=== PATIENT | female | born 1950 | race Caucasian/White ===

== ENCOUNTER 2020-03-24 12:25 | Inpatient (IN) ==
[2020-03-24] MEDS ORDERED: 0.9 % Sodium Chloride 1,000 ML IVC ONE (12:40)
[2020-03-24 14:07] LABS: Basophils # 0.1 K/mcL (0.0-0.2); Basophils % 0.5 %; Eosinophils # 0.1 K/mcL (0.0-0.6); Eosinophils % 0.4 %; Hematocrit 27.3 % (35.3-44.9); Hemoglobin 8.5 g/dL (11.5-15.4); Immature Granulocytes % 0.8 % (0-4); Lymphocytes # 1.1 K/mcL (0.6-4.6); Lymphocytes % 7.3 %; Mean Corpuscular HGB Conc 31.1 g/dL (31.6-35.5); Mean Corpuscular Hemoglobin 29.3 pg (28.0-33.3); Mean Corpuscular Volume 94.1 fL (83.0-100.0); Mean Platelet Volume 9.4 fL (9.4-12.4); Monocytes # 0.7 K/mcL (0.0-1.3); Neutrophils # 12.8 K/mcL (1.6-8.9); Platelet Count 860 K/mcL (140-400); Red Cell Distribution Width 15.9 % (11.5-14.5); White Blood Count 14.9 K/mcL (4.3-11.1)
[2020-03-24 16:38] LABS: Albumin 3.4 g/dL (3.5-5.7); Albumin/Globulin Ratio 1.1 (1.1-2.2); Bilirubin,Total 0.4 mg/dL (0.3-1.0); Calcium 14.9 mg/dL (8.6-10.3); Globulin 3.2 g/dL (2.4-3.5); Potassium 4.4 mEq/L (3.5-5.1); Total Protein 6.6 g/dL (6.4-8.9)
[2020-03-24 16:59] LABS: Troponin I 0.03 ng/mL (< 0.04)
[2020-03-24 17:50] LABS: Bacteria,Urine Few per hpf (None-Few); Bilirubin,Urine Negative (Negative); Blood,Urine Negative (Negative); Clarity,Urine Turbid (Clear); Color,Urine Light-Yellow (Yellow); Glucose,Urine (UA) Normal (Normal); Hyaline Casts,Urine Moderate per lpf (None Seen); Ketones,Urine Negative (Negative); Leukocyte Esterase,Urine Moderate (Negative); Mucus,Urine Few per lpf (None-Few); Nitrite,Urine Negative (Negative); PH,Urine 6.5 pH Units (5.0-8.0); Protein,Urine 30 mg/dL (Neg-Trace); Renal Epithelial Cells,Urine Few per hpf (None-Few); Specific Gravity,Urine 1.018 (1.010-1.025); Squamous Epithelial Cell,Urine Moderate per hpf (None-Few); Transitional Epi Cells,Urine Few per hpf (None-Few); Urobilinogen,Urine Normal (Normal); WBC,Urine 30-50 per hpf (0-3)
[2020-03-24] MEDS ORDERED: Ondansetron 4 MG/2 ML VIAL IVP PRN (18:09)
[2020-03-24] MEDS ORDERED: Naloxone 0.4 MG/ML INJ IVP PRN ×2 (18:09→18:20)
[2020-03-24] MEDS ORDERED: Ringers Solution, Lactated 1,000 ML IVC SCH (18:15)
[2020-03-24] MEDS ORDERED: Acetaminophen 325 MG TABLET PO PRN (18:20)
[2020-03-24] MEDS: 0.9 % Sodium Chloride 1,000 ML IVC SCH ×2 (19:35→23:41)
[2020-03-24] MEDS: Piperacillin/Tazobactam 3.375 GM in 0.9 % Sodium Chloride Mini Bag 100 ML IVPB SCH (19:35)
[2020-03-25] MEDS: 0.9 % Sodium Chloride 1,000 ML IVC SCH ×4 (04:25→21:32)
[2020-03-25] MEDS: Piperacillin/Tazobactam 3.375 GM in 0.9 % Sodium Chloride Mini Bag 100 ML IVPB SCH ×2 (04:25→14:18)
[2020-03-25 06:20] LABS: Basophils % 0.6 %; Eosinophils # 0.1 K/mcL (0.0-0.6); Hematocrit 20.6 % (35.3-44.9); Immature Granulocytes % 0.7 % (0-4); Lymphocytes # 0.8 K/mcL (0.6-4.6); Lymphocytes % 11.4 %; Mean Corpuscular HGB Conc 31.1 g/dL (31.6-35.5); Mean Corpuscular Hemoglobin 29.9 pg (28.0-33.3); Mean Corpuscular Volume 96.3 fL (83.0-100.0); Mean Platelet Volume 9.2 fL (9.4-12.4); Monocytes # 0.5 K/mcL (0.0-1.3); Neutrophils # 5.6 K/mcL (1.6-8.9); Platelet Count 514 K/mcL (140-400); Red Blood Count 2.14 M/mcL (3.82-4.97); Red Cell Distribution Width 15.9 % (11.5-14.5); Segmented Neutrophils % 78.3 %; White Blood Count 7.1 K/mcL (4.3-11.1)
[2020-03-25 06:21] LABS: Hemoglobin 6.4 g/dL (11.5-15.4)
[2020-03-25 06:24] LABS: INR 1.2; Prothrombin Time 14.1 Seconds (9.4-12.1)
[2020-03-25 06:41] LABS: Chol/HDL Ratio 5.2 (0-4.9)
[2020-03-25 06:43] LABS: Albumin 2.6 g/dL (3.5-5.7); Albumin/Globulin Ratio 1.1 (1.1-2.2); Bilirubin,Indirect 0.3 mg/dL (0.0-1.0); Bilirubin,Total 0.3 mg/dL (0.3-1.0); Calcium 11.7 mg/dL (8.6-10.3); Globulin 2.3 g/dL (2.4-3.5); Potassium 3.7 mEq/L (3.5-5.1); Total Protein 4.9 g/dL (6.4-8.9)
[2020-03-25] MEDS ORDERED: 0.9 % Sodium Chloride 250 ML IVC SCH (06:45)
[2020-03-25] MEDS: Sodium Ferric Gluconat/Sucrose 125 MG in 0.9 % Sodium Chloride 100 ML IVPB SCH (08:36)
[2020-03-25] MEDS: *HR* HYDROcodone/Acet 5/325 mg TABLET PO PRN ×2 (08:37→20:15)
[2020-03-25] MEDS: Pantoprazole 40 MG VIAL IVP SCH ×2 (08:37→17:17)
[2020-03-25] MEDS ORDERED: 0.9 % Sodium Chloride 250 ML ONE (09:48)
[2020-03-25] MEDS ORDERED: Lidocaine -MPF 2% 2 ML VIAL ONE (13:30)
[2020-03-25] MEDS ORDERED: *HR* Propofol 200 MG/20 ML VIAL IVP ONE (13:31)
[2020-03-25 18:08] LABS: Hematocrit 29.5 % (35.3-44.9)
[2020-03-25 18:14] LABS: Hemoglobin 9.2 g/dL (11.5-15.4)
[2020-03-26] MEDS: *HR* HYDROcodone/Acet 5/325 mg TABLET PO PRN ×3 (02:15→18:42)
[2020-03-26 02:20] LABS: Sodium, Urine 126.4 mEq/L
[2020-03-26] MEDS: 0.9 % Sodium Chloride 1,000 ML IVC SCH ×3 (04:58→21:45)
[2020-03-26] MEDS: Pantoprazole 40 MG VIAL IVP SCH (05:08)
[2020-03-26] MEDS: Piperacillin/Tazobactam 3.375 GM in 0.9 % Sodium Chloride Mini Bag 100 ML IVPB SCH ×2 (05:09→17:27)
[2020-03-26 05:20] LABS: Basophils # 0.1 K/mcL (0.0-0.2); Basophils % 0.6 %; Eosinophils # 0.1 K/mcL (0.0-0.6); Eosinophils % 0.7 %; Hemoglobin 8.3 g/dL (11.5-15.4); Immature Granulocytes % 0.5 % (0-4); Lymphocytes # 0.8 K/mcL (0.6-4.6); Lymphocytes % 7.3 %; Mean Corpuscular HGB Conc 31.9 g/dL (31.6-35.5); Mean Corpuscular Hemoglobin 29.3 pg (28.0-33.3); Mean Corpuscular Volume 91.9 fL (83.0-100.0); Mean Platelet Volume 9.4 fL (9.4-12.4); Monocytes # 0.6 K/mcL (0.0-1.3); Monocytes % 5.2 %; Neutrophils # 9.2 K/mcL (1.6-8.9); Platelet Count 537 K/mcL (140-400); Red Blood Count 2.83 M/mcL (3.82-4.97); Red Cell Distribution Width 15.9 % (11.5-14.5); Segmented Neutrophils % 85.7 %
[2020-03-26 05:35] LABS: White Blood Count 10.7 K/mcL (4.3-11.1)
[2020-03-26 05:36] LABS: Albumin 2.7 g/dL (3.5-5.7); Bilirubin,Total 0.4 mg/dL (0.3-1.0); Calcium 10.5 mg/dL (8.6-10.3); Globulin 2.7 g/dL (2.4-3.5); Total Protein 5.4 g/dL (6.4-8.9)
[2020-03-26] MEDS ORDERED: Potassium Chloride Elixir 20 MEQ/15 ML UDC PO ONE (07:22)
[2020-03-26] MEDS: Sodium Ferric Gluconat/Sucrose 125 MG in 0.9 % Sodium Chloride 100 ML IVPB SCH (09:23)
[2020-03-27] MEDS: *HR* HYDROcodone/Acet 5/325 mg TABLET PO PRN ×2 (00:45→12:00)
[2020-03-27 04:58] LABS: Basophils % 0.4 %; Eosinophils # 0.1 K/mcL (0.0-0.6); Eosinophils % 0.5 %; Hematocrit 24.2 % (35.3-44.9); Hemoglobin 7.7 g/dL (11.5-15.4); Immature Granulocytes % 0.3 % (0-4); Lymphocytes # 0.8 K/mcL (0.6-4.6); Lymphocytes % 7.7 %; Mean Corpuscular HGB Conc 31.8 g/dL (31.6-35.5); Mean Corpuscular Hemoglobin 29.4 pg (28.0-33.3); Mean Corpuscular Volume 92.4 fL (83.0-100.0); Mean Platelet Volume 9.5 fL (9.4-12.4); Monocytes # 0.7 K/mcL (0.0-1.3); Monocytes % 6.3 %; Neutrophils # 9.3 K/mcL (1.6-8.9); Platelet Count 452 K/mcL (140-400); Red Blood Count 2.62 M/mcL (3.82-4.97); Red Cell Distribution Width 15.9 % (11.5-14.5); Segmented Neutrophils % 84.8 %; White Blood Count 10.9 K/mcL (4.3-11.1)
[2020-03-27 05:13] LABS: Albumin 2.5 g/dL (3.5-5.7); Bilirubin,Total 0.3 mg/dL (0.3-1.0); Calcium 9.7 mg/dL (8.6-10.3); Globulin 2.5 g/dL (2.4-3.5); Magnesium 0.9 mg/dL (1.6-2.6); Potassium 3.1 mEq/L (3.5-5.1)
[2020-03-27] MEDS: Piperacillin/Tazobactam 3.375 GM in 0.9 % Sodium Chloride Mini Bag 100 ML IVPB SCH ×2 (05:28→17:31)
[2020-03-27] MEDS ORDERED: Potassium Chloride Elixir 20 MEQ/15 ML UDC PO ONE (07:52)
[2020-03-27] MEDS: 0.9 % Sodium Chloride 1,000 ML IVC SCH (09:01)
[2020-03-27] MEDS: Sodium Ferric Gluconat/Sucrose 125 MG in 0.9 % Sodium Chloride 100 ML IVPB SCH (09:06)
[2020-03-28 02:56] LABS: Basophils # 0.1 K/mcL (0.0-0.2); Basophils % 0.5 %; Eosinophils # 0.1 K/mcL (0.0-0.6); Eosinophils % 0.6 %; Hematocrit 23.3 % (35.3-44.9); Hemoglobin 7.4 g/dL (11.5-15.4); Immature Granulocytes % 0.4 % (0-4); Lymphocytes % 9.2 %; Mean Corpuscular HGB Conc 31.8 g/dL (31.6-35.5); Mean Corpuscular Hemoglobin 29.1 pg (28.0-33.3); Mean Corpuscular Volume 91.7 fL (83.0-100.0); Mean Platelet Volume 9.6 fL (9.4-12.4); Monocytes # 0.5 K/mcL (0.0-1.3); Monocytes % 4.9 %; Neutrophils # 9.3 K/mcL (1.6-8.9); Platelet Count 452 K/mcL (140-400); Red Blood Count 2.54 M/mcL (3.82-4.97); Red Cell Distribution Width 15.9 % (11.5-14.5); Segmented Neutrophils % 84.4 %
[2020-03-28 03:16] LABS: Alanine Aminotransferase 5 Units/L (7-52); Albumin 2.6 g/dL (3.5-5.7); Alkaline Phosphatase 153 Units/L (34-104); Aspartate Amino Transferase 9 Units/L (13-39); BUN/Creatinine Ratio 11 (6-26); Bilirubin,Total 0.4 mg/dL (0.3-1.0); Blood Urea Nitrogen 12 mg/dL (8-23); Calcium 8.8 mg/dL (8.6-10.3); Carbon Dioxide 22 mEq/L (23-29); Chloride 109 mEq/L (98-107); Globulin 2.6 g/dL (2.4-3.5); Glucose 101 mg/dL (70-105); Osmolality,Calculated 288 (280-300); Sodium 139 mEq/L (136-145); Total Protein 5.2 g/dL (6.4-8.9); eGFR For African Americans > 60 (> 60); eGFR For Non-African Americans 50 (> 60)
[2020-03-28 03:22] LABS: Magnesium 1.5 mg/dL (1.6-2.6)
[2020-03-28] MEDS ORDERED: Potassium Phosphate 44 MEQ in 0.9 % Sodium Chloride 250 ML IVPB ONE ×2 (03:26→07:45)
[2020-03-28] MEDS: *HR* HYDROcodone/Acet 5/325 mg TABLET PO PRN ×2 (03:38→17:11)
[2020-03-28] MEDS: 0.9 % Sodium Chloride 1,000 ML IVC SCH (04:21)
[2020-03-28] MEDS: Piperacillin/Tazobactam 3.375 GM in 0.9 % Sodium Chloride Mini Bag 100 ML IVPB SCH ×3 (05:48→23:32)
[2020-03-28] MEDS ORDERED: Potassium Chloride Elixir 20 MEQ/15 ML UDC PO ONE (07:45)
[2020-03-28 09:51] LABS: Lambda Qnt Free Light Chains 27.95 mg/L (5.71-26.30)
[2020-03-28 11:52] LABS: Kappa Qnt Free Light Chains 31.31 mg/L (3.30-19.40)
[2020-03-28] MEDS: Sodium Ferric Gluconat/Sucrose 125 MG in 0.9 % Sodium Chloride 100 ML IVPB SCH (12:07)
[2020-03-28 17:06] LABS: Phosphorous > 20.0 mg/dL (2.7-4.5)
[2020-03-29] MEDS: *HR* HYDROcodone/Acet 5/325 mg TABLET PO PRN ×2 (04:53→14:00)
[2020-03-29] MEDS: Piperacillin/Tazobactam 3.375 GM in 0.9 % Sodium Chloride Mini Bag 100 ML IVPB SCH (07:15)
[2020-03-29 07:26] LABS: Basophils % 0.3 %; Eosinophils # 0.1 K/mcL (0.0-0.6); Eosinophils % 1.2 %; Hematocrit 23.7 % (35.3-44.9); Hemoglobin 7.4 g/dL (11.5-15.4); Immature Granulocytes % 0.4 % (0-4); Lymphocytes # 1.1 K/mcL (0.6-4.6); Lymphocytes % 12.1 %; Mean Corpuscular HGB Conc 31.2 g/dL (31.6-35.5); Mean Corpuscular Hemoglobin 28.8 pg (28.0-33.3); Mean Corpuscular Volume 92.2 fL (83.0-100.0); Mean Platelet Volume 9.9 fL (9.4-12.4); Monocytes # 0.6 K/mcL (0.0-1.3); Neutrophils # 7.1 K/mcL (1.6-8.9); Platelet Count 400 K/mcL (140-400); Red Blood Count 2.57 M/mcL (3.82-4.97); Red Cell Distribution Width 15.9 % (11.5-14.5)
[2020-03-29 07:46] LABS: Alanine Aminotransferase 6 Units/L (7-52); Albumin 2.5 g/dL (3.5-5.7); Alkaline Phosphatase 154 Units/L (34-104); Aspartate Amino Transferase 9 Units/L (13-39); BUN/Creatinine Ratio 10 (6-26); Bilirubin,Total 0.3 mg/dL (0.3-1.0); Blood Urea Nitrogen 11 mg/dL (8-23); Carbon Dioxide 21 mEq/L (23-29); Chloride 110 mEq/L (98-107); Globulin 2.5 g/dL (2.4-3.5); Glucose 96 mg/dL (70-105); Magnesium 1.7 mg/dL (1.6-2.6); Osmolality,Calculated 289 (280-300); Phosphorous 1.9 mg/dL (2.7-4.5); Potassium 3.6 mEq/L (3.5-5.1); Sodium 140 mEq/L (136-145); eGFR For African Americans > 60 (> 60); eGFR For Non-African Americans 50 (> 60)
[2020-03-29] MEDS ORDERED: Potassium Phosphate 44 MEQ in 0.9 % Sodium Chloride 250 ML IVPB ONE (08:18)
[2020-03-29] MEDS: Sodium Ferric Gluconat/Sucrose 125 MG in 0.9 % Sodium Chloride 100 ML IVPB SCH (12:49)
[2020-03-30 01:36] LABS: Alpha 2 Globulin (PEP) 0.82 g/dL (0.48-1.05); Beta Globulin (PEP) 0.78 g/dL (0.48-1.10)
[2020-03-30] MEDS: *HR* HYDROcodone/Acet 5/325 mg TABLET PO PRN (03:12)
[2020-03-30 04:35] LABS: BUN/Creatinine Ratio 10 (6-26); Blood Urea Nitrogen 9 mg/dL (8-23); Calcium 7.6 mg/dL (8.6-10.3); Carbon Dioxide 21 mEq/L (23-29); Chloride 108 mEq/L (98-107); Glucose 97 mg/dL (70-105); Magnesium 1.7 mg/dL (1.6-2.6); Osmolality,Calculated 283 (280-300); Phosphorous 1.8 mg/dL (2.7-4.5); Potassium 3.4 mEq/L (3.5-5.1); Sodium 137 mEq/L (136-145); eGFR For African Americans > 60 (> 60); eGFR For Non-African Americans > 60 (> 60)
[2020-03-30 06:27] LABS: Immunoglobulin G 614 mg/dL (768-1632)
[2020-03-30 06:28] LABS: IFE Reflexed IFE Done; Immunoglobulin A 254 mg/dL (68-408); Immunoglobulin M 54 mg/dL (35-263)
[2020-03-30 06:55] VITALS: BP 124/66
[2020-03-30] MEDS ORDERED: Potassium Phosphate 44 MEQ in 0.9 % Sodium Chloride 250 ML IVPB ONE (07:18)
[2020-03-30] MEDS: Sodium Ferric Gluconat/Sucrose 125 MG in 0.9 % Sodium Chloride 100 ML IVPB SCH (10:56)
== END 2020-03-30 13:15 | disposition home or self-care (01) | DRG 871 ==
LOC: EMEROOARM 12:25 → 3ANU 12:25 → SUATTDRO 18:03 → 3ANU 18:49
PROVIDERS: ADMIT Internal Medicine; ATTEND Internal Medicine
PROC: ENDOEBX (2020-03-25 15:00)